=== PATIENT | male | born 1955 | race Caucasian/White ===

== ENCOUNTER 2022-04-02 01:04 | Inpatient (IN) | payer OTHER, MEDICAID ==
[~2022-04-02] VITALS: Ht 167.6 cm; Wt 90.7 kg
[2022-04-02 03:47] LABS: BASOPHILS % 0.3 % (0.0-2.0); EOSINOPHILS % 0.7 % (0.0-5.0); HEMATOCRIT. 46.8 % (42.0-52.0); HEMOGLOBIN. 16.2 g/dL (14.0-18.0); LYMPHOCYTES % 15.2 % (20.0-50.0); MEAN CORPUSCULAR HEMOGLOBIN 33.7 pg (28.0-32.0); MONOCYTES % 6.8 % (2.0-8.0); PLATELET 230 x1000/uL (130-400); RED BLOOD CELL COUNT 4.82 mill/uL (4.7-6.1); RED CELL DISTRIBUTION WIDTH 13.4 % (11.6-14.6)
[2022-04-02 03:54] LABS: CHLORIDE 107 mEq/L (98-107)
[2022-04-02 04:09] LABS: ETHANOL BLOOD < 10 mg/dL
[2022-04-02 05:50] LABS: CLARITY URINE CLOUDY (CLEAR); COLOR URINE YELLOW (YELLOW); KETONES URINE TRACE (NEGATIVE); LEUKOCYTE ESTERASE URINE 3+ (NEGATIVE); NITRITE URINE NEGATIVE (NEGATIVE); OCCULT BLOOD URINE TRACE (NEGATIVE); PROTEIN URINE NEGATIVE (NEGATIVE); SPECIFIC GRAVITY URINE 1.015 (1.005-1.030); UROBILINOGEN URINE 0.2 E.U./dL (0.2-1.0)
[2022-04-02 06:05] LABS: *AMPHETAMINES SCREEN URINE NEGATIVE (NEGATIVE); *BARBITURATES SCREEN URINE NEGATIVE (NEGATIVE); *BENZODIAZEPINES SCREEN URINE NEGATIVE (NEGATIVE); *COCAINE SCREEN URINE NEGATIVE (NEGATIVE); CANNABINOID URINE SCREEN NEGATIVE (NEGATIVE); METHADONE URINE SCREEN NEGATIVE (NEGATIVE); OPIATES URINE SCREEN NEGATIVE (NEGATIVE); PHENCYCLIDINE URINE SCREEN NEGATIVE (NEGATIVE)
[2022-04-02] MEDS ORDERED: ASPI-867 MT (10:32)
[2022-04-02 10:52] VITALS: BP 127/82
[2022-04-02 11:26] VITALS: BP 127/82
[2022-04-02] MEDS ORDERED: ZOLPIDEM TARTRATE 5MG TABLET PO PRN (12:15)
[2022-04-02] MEDS ORDERED: ACETAMINOPHEN 325MG TABLET PO PRN (12:15)
[2022-04-02] MEDS ORDERED: CLONIDINE 0.1MG TABLET PO PRN (12:15)
[2022-04-02] MEDS ORDERED: IPRATROPIUM/ALBUTEROL 0.5-3(2.5)MG/3ML NEB HHN PRN (12:15)
[2022-04-02] MEDS: ENOXAPARIN 40MG/0.4ML SYR SUBCUT SCH (12:52)
[2022-04-02] MEDS: CEFTRIAXONE 1,000 MG in DEXTROSE 5% WATER 50 ML IV SCH (15:12)
[2022-04-02 16:01] VITALS: BP 95/57
[2022-04-02 16:39] LABS: CREATINE KINASE MB FRACTION 1.5 ng/mL (0.5-3.6)
[2022-04-02 20:00] VITALS: BP 104/66
[2022-04-03] VITALS: BP 131/79
[2022-04-03 03:06] LABS: CREATINE KINASE MB FRACTION 1.1 ng/mL (0.5-3.6)
[2022-04-03 04:00] VITALS: BP 106/64
[2022-04-03 08:00] VITALS: BP 118/65
[2022-04-03] MEDS ORDERED: DEXAMETHASONE 4MG/ML 1ML VIAL IV NR (10:15)
[2022-04-03 12:00] VITALS: BP 132/83
[2022-04-03 12:39] LABS: BASOPHILS % 0.5 % (0.0-2.0); EOSINOPHILS % 0.6 % (0.0-5.0); HEMOGLOBIN. 14.2 g/dL (14.0-18.0); MEAN CORPUSCULAR HEMOGLOBIN 33.5 pg (28.0-32.0); MEAN CORPUSCULAR VOLUME 97.1 fL (80.0-94.0); MEAN PLATELET VOLUME 8.5 fl (7.4-10.4); NEUTROPHILS % 76.9 % (40.0-76.0); PLATELET 205 x1000/uL (130-400); RED BLOOD CELL COUNT 4.22 mill/uL (4.7-6.1); RED CELL DISTRIBUTION WIDTH 12.7 % (11.6-14.6)
[2022-04-03] MEDS: ENOXAPARIN 40MG/0.4ML SYR SUBCUT SCH (12:58)
[2022-04-03 13:22] LABS: CHLORIDE 105 mEq/L (98-107)
[2022-04-03] MEDS: CEFTRIAXONE 1,000 MG in DEXTROSE 5% WATER 50 ML IV SCH (15:43)
[2022-04-03 16:00] VITALS: BP 108/67
[2022-04-03] MEDS: DEXAMETHASONE 4MG/ML 1ML VIAL IV SCH (18:47)
[2022-04-03 20:00] VITALS: BP 96/61
[2022-04-04] VITALS (7 sets, daily range): BP systolic 99–150; BP diastolic 54–91
[2022-04-04] MEDS: DEXAMETHASONE 4MG/ML 1ML VIAL IV SCH ×5 (00:43→23:47)
[2022-04-04] MEDS: ENOXAPARIN 40MG/0.4ML SYR SUBCUT SCH (12:24)
[2022-04-04] MEDS ORDERED: DOCU250C69 PO (12:43)
[2022-04-04 16:48] LABS: INR 1.1; PROTHROMBIN TIME 11.4 sec (9.6-11.0)
[2022-04-04] MEDS: CEFTRIAXONE 1,000 MG in DEXTROSE 5% WATER 50 ML IV SCH (16:53)
[2022-04-04] MEDS: DOCUSATE SODIUM 250MG CAPSULE PO SCH (20:16)
[2022-04-05] VITALS (45 sets, daily range): BP systolic 76–192; BP diastolic 39–109
[2022-04-05] MEDS: DEXAMETHASONE 4MG/ML 1ML VIAL IV SCH ×3 (05:50→17:15)
[2022-04-05] MEDS ORDERED: ROCURONIUM BROMIDE 10MG/ML VIAL 5ML IV ONE ×2 (06:52→08:57)
[2022-04-05] MEDS ORDERED: FENTANYL CITRATE/PF 50MCG/ML 2ML VIAL ONE ×2 (06:52→08:20)
[2022-04-05] MEDS ORDERED: PROPOFOL 200MG/20ML VIAL IV ONE (06:52)
[2022-04-05] MEDS ORDERED: PHENYLEPHRINE HCL 10 MG/ML 1ML (IV VIAL) IV ONE (06:52)
[2022-04-05] MEDS ORDERED: LIDOCAINE HCL 1%/EPI 1:200,000 30 ML VIAL ONE (06:59)
[2022-04-05] MEDS ORDERED: BACITRACIN 15GM TUBE TOP ONE (06:59)
[2022-04-05] MEDS ORDERED: GENTAMICIN SULF 40MG/ML 2ML VIAL ONE (06:59)
[2022-04-05] MEDS ORDERED: THROMBIN (BOVINE) 5000 UNITS/VIAL TOP ONE (06:59)
[2022-04-05] MEDS ORDERED: MORPHINE SULFATE 4 MG/ML CPJ (NOT FOR IM USE) IV PRN (08:00)
[2022-04-05] MEDS ORDERED: GLYCOPYRROLATE 0.2 MG/ML 2ML VIAL ONE ×2 (08:19→09:17)
[2022-04-05] MEDS ORDERED: NEOSTIGMINE METHYLSULFATE 1MG/ML 10 ML VIAL ONE (09:16)
[2022-04-05] MEDS ORDERED: CEFAZOLIN SODIUM 1000MG/VIAL ONE (09:40)
[2022-04-05] MEDS ORDERED: NICARDIPINE 100 MG in SODIUM CHLORIDE 0.9% 60 ML IV PRN (10:00)
[2022-04-05] MEDS: DOCUSATE SODIUM 250MG CAPSULE PO SCH (10:23)
[2022-04-05] MEDS: DEXT 5%/LACTATED RINGERS 1,000 ML IV SCH ×2 (11:10→17:15)
[2022-04-05] MEDS: CEFAZOLIN 1000MG PREMIX 50 ML IV SCH ×2 (13:13→22:13)
[2022-04-05] MEDS ORDERED: CEFAZOLIN SODIUM 1000MG/VIAL IV SCH (14:00)
[2022-04-06] VITALS (73 sets, daily range): BP systolic 36–169; BP diastolic 23–151
[2022-04-06] MEDS: DEXAMETHASONE 4MG/ML 1ML VIAL IV SCH ×4 (00:45→18:07)
[2022-04-06] MEDS: DEXT 5%/LACTATED RINGERS 1,000 ML IV SCH ×2 (04:00→14:20)
[2022-04-06] MEDS: CEFAZOLIN 1000MG PREMIX 50 ML IV SCH ×2 (05:21→14:20)
[2022-04-06] MEDS: DOCUSATE SODIUM 250MG CAPSULE PO SCH (08:05)
[2022-04-07] VITALS (21 sets, daily range): BP systolic 83–176; BP diastolic 51–101
[2022-04-07] MEDS: DOCUSATE SODIUM 250MG CAPSULE PO SCH (08:14)
[2022-04-07] MEDS ORDERED: NALOXONE HCL 0.4MG/ML VIAL IV PRN (10:15)
[2022-04-07] MEDS: DEXT 5%/LACTATED RINGERS 1,000 ML IV SCH ×3 (12:40→20:14)
[2022-04-07 18:04] LABS: BASOPHILS % 0.1 % (0.0-2.0); EOSINOPHILS % 0.1 % (0.0-5.0); HEMATOCRIT. 40.2 % (42.0-52.0); HEMOGLOBIN. 13.8 g/dL (14.0-18.0); LYMPHOCYTES % 12.1 % (20.0-50.0); MEAN CORPUSCULAR HEMOGLOBIN 33.3 pg (28.0-32.0); MEAN CORPUSCULAR VOLUME 96.9 fL (80.0-94.0); MEAN PLATELET VOLUME 8.4 fl (7.4-10.4); NEUTROPHILS % 75.7 % (40.0-76.0); PLATELET 220 x1000/uL (130-400); RED BLOOD CELL COUNT 4.15 mill/uL (4.7-6.1); RED CELL DISTRIBUTION WIDTH 12.7 % (11.6-14.6)
[2022-04-07 18:25] LABS: CHLORIDE 104 mEq/L (98-107)
[2022-04-08] MEDS: DEXT 5%/LACTATED RINGERS 1,000 ML IV SCH (04:59)
[2022-04-08] MEDS: DOCUSATE SODIUM 250MG CAPSULE PO SCH (07:49)
[2022-04-08 08:00] VITALS: BP 130/82
[2022-04-08 12:00] VITALS: BP 109/70
[2022-04-08 14:18] VITALS: BP 109/70
[2022-04-09] MEDS ORDERED: LEVO-65 MT (09:46)
== END 2022-04-08 15:15 | disposition home health service (06) | DRG 471 ==
LOC: ER 01:52 → 8WST 04:56 → MICUNO 04-05 09:39 → 6EST 04-07 10:06
PROVIDERS: ADMIT Internal Medicine; ATTEND Internal Medicine
PROC: 0RG20A0 Fusion of 2 or more Cervical Vertebral Joints with Interbody Fusion Device, Anterior Approach, Anterior Column, Open Approach (ICD-10-PCS; principal; 2022-04-05)
PROC: 00NW0ZZ Release Cervical Spinal Cord, Open Approach (ICD-10-PCS; 2022-04-05)
PROC: 0RB30ZZ Excision of Cervical Vertebral Disc, Open Approach (ICD-10-PCS; 2022-04-05)
PROC: 4A11X4G Monitoring of Peripheral Nervous Electrical Activity, Intraoperative, External Approach (ICD-10-PCS; 2022-04-05)
DX: M48.02 Spinal stenosis, cervical region (principal); G82.50 Quadriplegia, unspecified; M50.022 Cervical disc disorder at C5-C6 level with myelopathy; N39.0 Urinary tract infection, site not specified; G95.20 Unspecified cord compression; M47.12 Other spondylosis with myelopathy, cervical region; I10 Essential (primary) hypertension; E11.9 Type 2 diabetes mellitus without complications; M50.90 Cervical disc disorder, unspecified, unspecified cervical region; M47.892 Other spondylosis, cervical region; J44.9 Chronic obstructive pulmonary disease, unspecified; M25.78 Osteophyte, vertebrae; M50.221 Other cervical disc displacement at C4-C5 level; M50.222 Other cervical disc displacement at C5-C6 level; Z86.73 Personal history of transient ischemic attack (TIA), and cerebral infarction without residual deficits; Z20.822 Contact with and (suspected) exposure to COVID-19
CPT/HCPCS: 36415; 70551; 71045; 72040; 72141; 76000; 80053; 80061; 80305; 80320; 81003; 82140; 82550; 82553; 82962; 83036; 83880; 84153; 84443; 84484; 85025; 86850; 86900; 87426; 88304; 88311; 92610; 93005; 97161; 97164; 97530; 99285; C1893; J0690; J0696; J1100; J1580; J1650; J2270; J2370; J2704; J2710; J3010; J3490; J7060; J7121; G0103; G0480

== ENCOUNTER 2022-05-31 18:12 | Inpatient (IN) | payer OTHER, MEDICAID ==
[~2022-05-31] VITALS: Ht 165.1 cm; Wt 81.6 kg
[~2022-05-31 18:12] MED LIST: ASPI-867 MT; DOCU250C69 PO; LEVO-65 MT
[2022-05-31] MEDS ORDERED: ACETAMINOPHEN 500MG TABLET PO ONE (18:30)
[2022-05-31 20:02] LABS: HEMATOCRIT. 37.4 % (42.0-52.0); HEMOGLOBIN. 12.5 g/dL (14.0-18.0); MEAN CORPUSCULAR HEMOGLOBIN 31.6 pg (28.0-32.0); MEAN CORPUSCULAR VOLUME 94.6 fL (80.0-94.0); MEAN PLATELET VOLUME 7.4 fl (7.4-10.4); PLATELET 326 x1000/uL (130-400); RED BLOOD CELL COUNT 3.95 mill/uL (4.7-6.1); RED CELL DISTRIBUTION WIDTH 14.4 % (11.6-14.6)
[2022-05-31 20:09] LABS: INR 1.1; PROTHROMBIN TIME 12.2 sec (9.6-11.0)
[2022-05-31 20:55] LABS: CHLORIDE 100 mEq/L (98-107)
[2022-05-31] MEDS ORDERED: AZITHROMYCIN 500 MG in DEXT 5% WATER 250 ML IV SCH (21:00)
[2022-05-31] MEDS ORDERED: AZITHROMYCIN 500MG/250ML 250 ML IV SCH (21:00)
[2022-05-31] MEDS ORDERED: CEFTRIAXONE 1 G PREMIX 50 ML IV NR (21:00)
[2022-05-31 21:09] LABS: PLATELET ESTIMATE NORMAL
[2022-05-31] MEDS ORDERED: SODIUM CHLORIDE 0.9% 1,000 ML IV NR (21:45)
[2022-05-31] MEDS ORDERED: ACETAMINOPHEN 500MG TABLET PO NR (22:00)
[2022-06-01] MEDS ORDERED: ONDANSETRON HCL 4MG/2ML INJ IV PRN (10:15)
[2022-06-01] MEDS ORDERED: DIPHENHYDRAMINE 50MG/ML VIAL IV PRN (10:15)
[2022-06-01] MEDS ORDERED: NA PHOS,M-B/NA PHOS,DI-BA ENEMA 118ML PR PRN (10:15)
[2022-06-01] MEDS ORDERED: MAGNESIUM/ALUMINUM HYDROXIDE/SIMETHICONE 30ML UDC PO PRN (10:15)
[2022-06-01] MEDS ORDERED: ACETAMINOPHEN 650MG SUPP PR PRN (10:15)
[2022-06-01] MEDS ORDERED: HYDROCODONE/ACETAMINOPHEN 5/325MG TABLET PO PRN (10:15)
[2022-06-01] MEDS ORDERED: ACETAMINOPHEN 325MG TABLET PO PRN (10:15)
[2022-06-01] MEDS ORDERED: IPRATROPIUM/ALBUTEROL 0.5-3(2.5)MG/3ML NEB NEB PRN (10:15)
[2022-06-01] MEDS ORDERED: DOCUSATE SODIUM 100MG CAPSULE PO PRN (10:15)
[2022-06-01] MEDS ORDERED: LORAZEPAM 0.5MG TABLET PO PRN (10:15)
[2022-06-01 10:52] LABS: CHLORIDE 102 mEq/L (98-107)
[2022-06-01] MEDS ORDERED: VANCOMYCIN 1500MG in DEXTROSE 5% WATER 250ML IV NR (11:30)
[2022-06-01] MEDS: IPRATROPIUM/ALBUTEROL 0.5-3(2.5)MG/3ML NEB HHN SCH (12:00)
[2022-06-01 12:08] LABS: CLARITY URINE CLEAR (CLEAR); COLOR URINE YELLOW (YELLOW); KETONES URINE NEGATIVE (NEGATIVE); LEUKOCYTE ESTERASE URINE NEGATIVE (NEGATIVE); NITRITE URINE NEGATIVE (NEGATIVE); OCCULT BLOOD URINE NEGATIVE (NEGATIVE); PH URINE 6.5 (4.5-8.0); PROTEIN URINE NEGATIVE (NEGATIVE); SPECIFIC GRAVITY URINE 1.014 (1.005-1.030)
[2022-06-01] MEDS ORDERED: METHYLPREDNISOLONE SOD SUCC 40 MG/ML VIAL IV SCH (13:00)
[2022-06-01 13:04] LABS: BG BASE EXCESS 2.2 mmol/L (-2.0-2.0); BG CARBOXYHEMOGLOBIN 0.3 % (0.5-1.5); BG DEOXYHEMOGLOBIN 3.1 % (0.0-5.0); BG HCO3 ACT 26.7 mmol/L (22.0-26.0); BG METHEMOGLOBIN 0.3 % (0.0-1.5); BG OXYGEN SATURATION 96.9 % (92.0-98.5); BG OXYHEMOGLOBIN 96.3 % (94.0-97.0); BG PCO2 41.3 mmHg (35.0-45.0); BG PH 7.429 (7.350-7.450); BG PO2 91.2 mmHg (75.0-100.0); BG SAMPLE SITE RIGHT RADIAL; BG TOTAL HEMOGLOBIN 13.3 g/dL (12.0-18.0); BG VENT MODE NASAL CANNULA
[2022-06-01] MEDS ORDERED: ACETYLCYSTEINE 100MG/ML 10% VIAL 4ML INH SCH (14:00)
[2022-06-01] MEDS: PIPERACILLIN/TAZOBACTAM 3.375 G in DEXTROSE 5% WATER 50 ML IV SCH ×2 (15:04→22:30)
[2022-06-01] MEDS: GUAIFENESIN 200MG/10ML SUGAR FREE UDC PO PRN ×2 (15:04→15:08)
[2022-06-01] MEDS ORDERED: NALOXONE HCL 0.4MG/ML VIAL IV PRN (15:30)
[2022-06-01 16:31] LABS: BASOPHILS % 0.5 % (0.0-2.0); EOSINOPHILS % 0.7 % (0.0-5.0); HEMATOCRIT. 39.2 % (42.0-52.0); HEMOGLOBIN. 13.2 g/dL (14.0-18.0); LYMPHOCYTES % 8.1 % (20.0-50.0); MEAN CORPUSCULAR HEMOGLOBIN 32.1 pg (28.0-32.0); MEAN CORPUSCULAR VOLUME 95.2 fL (80.0-94.0); MEAN PLATELET VOLUME 7.6 fl (7.4-10.4); MONOCYTES % 3.2 % (2.0-8.0); NEUTROPHILS % 87.5 % (40.0-76.0); PLATELET 290 x1000/uL (130-400); RED BLOOD CELL COUNT 4.12 mill/uL (4.7-6.1); RED CELL DISTRIBUTION WIDTH 14.7 % (11.6-14.6)
[2022-06-01] MEDS: ENOXAPARIN 40MG/0.4ML SYR SUBCUT SCH (19:41)
[2022-06-01] MEDS: METHYLPREDNISOLONE SOD SUCC 40 MG/ML VIAL IV SCH (21:00)
[2022-06-01] MEDS: FAMOTIDINE 20MG TABLET PO SCH (21:00)
[2022-06-02] MEDS ORDERED: VANCOMYCIN 750MG PREMIX 150 ML IV SCH
[2022-06-02] MEDS: IPRATROPIUM/ALBUTEROL 0.5-3(2.5)MG/3ML NEB HHN SCH ×2 (02:20→08:05)
[2022-06-02] MEDS: METHYLPREDNISOLONE SOD SUCC 40 MG/ML VIAL IV SCH ×3 (05:00→22:22)
[2022-06-02 05:44] LABS: CHLORIDE 104 mEq/L (98-107); HEMATOCRIT. 36.8 % (42.0-52.0); HEMOGLOBIN. 12.6 g/dL (14.0-18.0); MEAN CORPUSCULAR HEMOGLOBIN 32.2 pg (28.0-32.0); MEAN CORPUSCULAR VOLUME 93.6 fL (80.0-94.0); MEAN PLATELET VOLUME 7.5 fl (7.4-10.4); PLATELET 317 x1000/uL (130-400); RED BLOOD CELL COUNT 3.93 mill/uL (4.7-6.1); RED CELL DISTRIBUTION WIDTH 14.3 % (11.6-14.6)
[2022-06-02] MEDS: PIPERACILLIN/TAZOBACTAM 3.375 G in DEXTROSE 5% WATER 50 ML IV SCH ×3 (06:00→22:21)
[2022-06-02 09:27] LABS: BG BASE EXCESS 1.6 mmol/L (-2.0-2.0); BG DEOXYHEMOGLOBIN 7.9 % (0.0-5.0); BG FRACTION INSPIRED OXYGEN 32; BG HCO3 ACT 26.2 mmol/L (22.0-26.0); BG METHEMOGLOBIN 0.3 % (0.0-1.5); BG OXYHEMOGLOBIN 90.8 % (94.0-97.0); BG PCO2 41.1 mmHg (35.0-45.0); BG PH 7.422 (7.350-7.450); BG PO2 62.7 mmHg (75.0-100.0); BG SAMPLE SITE LEFT RADIAL; BG TOTAL HEMOGLOBIN 14.1 g/dL (12.0-18.0); BG VENT MODE NASAL CANNULA
[2022-06-02] MEDS: GUAIFENESIN 200MG/10ML SUGAR FREE UDC PO PRN (11:36)
[2022-06-02] MEDS: VANCOMYCIN 750MG PREMIX 150 ML IV SCH ×2 (11:36→23:58)
[2022-06-02 12:49] LABS: PLATELET ESTIMATE NORMAL
[2022-06-02] MEDS ORDERED: ALBUTEROL (0.083%) 2.5MG/3ML NEB HHN PRN (15:15)
[2022-06-02] MEDS ORDERED: IPRATROPIUM BROMIDE (0.02%) 0.5MG/2.5ML NEB HHN PRN (15:15)
[2022-06-02 15:20] VITALS: BP 172/98
[2022-06-02] MEDS: CLONIDINE 0.1MG TABLET PO PRN (16:19)
[2022-06-02] MEDS: ENOXAPARIN 40MG/0.4ML SYR SUBCUT SCH (17:58)
[2022-06-02 20:00] VITALS: BP_SYST 115; BP_SYST 149; BP_DIAS 73; BP_DIAS 77
[2022-06-02] MEDS: ACETYLCYSTEINE 200MG/ML 20% VIAL 4ML INH SCH (21:39)
[2022-06-02] MEDS: IPRATROPIUM BROMIDE (0.02%) 0.5MG/2.5ML NEB HHN SCH (21:40)
[2022-06-02] MEDS: ALBUTEROL (0.083%) 2.5MG/3ML NEB HHN SCH (21:41)
[2022-06-02] MEDS: FAMOTIDINE 20MG TABLET PO SCH (22:22)
[2022-06-02 23:30] VITALS: BP 115/73
[2022-06-03 04:00] VITALS: BP 124/83
[2022-06-03] MEDS: METHYLPREDNISOLONE SOD SUCC 40 MG/ML VIAL IV SCH ×3 (05:13→20:59)
[2022-06-03] MEDS: PIPERACILLIN/TAZOBACTAM 3.375 G in DEXTROSE 5% WATER 50 ML IV SCH ×3 (06:26→20:38)
[2022-06-03 07:33] LABS: HEMATOCRIT. 37.8 % (42.0-52.0); HEMOGLOBIN. 12.8 g/dL (14.0-18.0); MEAN CORPUSCULAR VOLUME 94.6 fL (80.0-94.0); MEAN PLATELET VOLUME 7.7 fl (7.4-10.4); PLATELET 339 x1000/uL (130-400); RED BLOOD CELL COUNT 3.99 mill/uL (4.7-6.1); RED CELL DISTRIBUTION WIDTH 14.1 % (11.6-14.6)
[2022-06-03 08:00] VITALS: BP 142/89
[2022-06-03 08:13] LABS: CHLORIDE 102 mEq/L (98-107)
[2022-06-03] MEDS ORDERED: APIX5TAB MT (08:17)
[2022-06-03] MEDS ORDERED: AMIO100T4 MT (08:17)
[2022-06-03] MEDS: VANCOMYCIN 750MG PREMIX 150 ML IV SCH (10:01)
[2022-06-03] MEDS: ACETYLCYSTEINE 200MG/ML 20% VIAL 4ML INH SCH (10:10)
[2022-06-03] MEDS: IPRATROPIUM BROMIDE (0.02%) 0.5MG/2.5ML NEB HHN SCH ×2 (10:10→19:55)
[2022-06-03] MEDS: ALBUTEROL (0.083%) 2.5MG/3ML NEB HHN SCH ×2 (10:10→19:55)
[2022-06-03 12:00] VITALS: BP 145/79
[2022-06-03 13:56] LABS: PLATELET ESTIMATE NORMAL
[2022-06-03 16:00] VITALS: BP 163/91
[2022-06-03] MEDS ORDERED: IOHEXOL-350 100 ML BOTTLE ONE (16:06)
[2022-06-03] MEDS: CLONIDINE 0.1MG TABLET PO PRN (17:06)
[2022-06-03] MEDS: ENOXAPARIN 40MG/0.4ML SYR SUBCUT SCH (17:06)
[2022-06-03 20:00] VITALS: BP 95/65
[2022-06-03] MEDS: VANCOMYCIN 1G PREMIX 200 ML IV SCH (20:38)
[2022-06-03] MEDS: FAMOTIDINE 20MG TABLET PO SCH (20:59)
[2022-06-04] VITALS (7 sets, daily range): BP systolic 128–190; BP diastolic 76–107
[2022-06-04] MEDS: ACETYLCYSTEINE 200MG/ML 20% VIAL 4ML INH SCH ×3 (02:19→13:31)
[2022-06-04] MEDS: IPRATROPIUM BROMIDE (0.02%) 0.5MG/2.5ML NEB HHN SCH ×3 (02:20→13:30)
[2022-06-04] MEDS: ALBUTEROL (0.083%) 2.5MG/3ML NEB HHN SCH ×3 (02:20→13:29)
[2022-06-04] MEDS: METHYLPREDNISOLONE SOD SUCC 40 MG/ML VIAL IV SCH ×3 (05:47→20:46)
[2022-06-04] MEDS: PIPERACILLIN/TAZOBACTAM 3.375 G in DEXTROSE 5% WATER 50 ML IV SCH ×3 (05:48→20:45)
[2022-06-04] MEDS: CLONIDINE 0.1MG TABLET PO PRN (07:58)
[2022-06-04] MEDS: VANCOMYCIN 1G PREMIX 200 ML IV SCH ×2 (11:42→20:45)
[2022-06-04 18:53] LABS: BG BASE EXCESS 3.5 mmol/L (-2.0-2.0); BG CARBOXYHEMOGLOBIN 0.7 % (0.5-1.5); BG DEOXYHEMOGLOBIN 6.3 % (0.0-5.0); BG FRACTION INSPIRED OXYGEN 21; BG METHEMOGLOBIN 0.2 % (0.0-1.5); BG OXYGEN SATURATION 93.6 % (92.0-98.5); BG OXYHEMOGLOBIN 92.8 % (94.0-97.0); BG PCO2 42.1 mmHg (35.0-45.0); BG PH 7.441 (7.350-7.450); BG PO2 65.8 mmHg (75.0-100.0); BG SAMPLE SITE RIGHT RADIAL; BG VENT MODE ROOM AIR
[2022-06-04] MEDS: ENOXAPARIN 40MG/0.4ML SYR SUBCUT SCH (20:01)
[2022-06-04] MEDS: FAMOTIDINE 20MG TABLET PO SCH (20:45)
[2022-06-04 21:40] LABS: HEMATOCRIT. 39.7 % (42.0-52.0); HEMOGLOBIN. 13.1 g/dL (14.0-18.0); MEAN CORPUSCULAR HEMOGLOBIN 30.9 pg (28.0-32.0); MEAN CORPUSCULAR VOLUME 93.8 fL (80.0-94.0); MEAN PLATELET VOLUME 7.2 fl (7.4-10.4); PLATELET 346 x1000/uL (130-400); RED BLOOD CELL COUNT 4.23 mill/uL (4.7-6.1); RED CELL DISTRIBUTION WIDTH 14.3 % (11.6-14.6)
[2022-06-04 21:57] LABS: CHLORIDE 100 mEq/L (98-107)
[2022-06-04 22:14] LABS: PLATELET ESTIMATE NORMAL
[2022-06-05] VITALS: BP 151/90
[2022-06-05] MEDS: ALBUTEROL (0.083%) 2.5MG/3ML NEB HHN SCH ×4 (01:55→20:09)
[2022-06-05] MEDS: IPRATROPIUM BROMIDE (0.02%) 0.5MG/2.5ML NEB HHN SCH ×4 (01:55→20:09)
[2022-06-05] MEDS: ACETYLCYSTEINE 200MG/ML 20% VIAL 4ML INH SCH ×3 (01:55→16:45)
[2022-06-05 04:00] VITALS: BP 161/97
[2022-06-05] MEDS: METHYLPREDNISOLONE SOD SUCC 40 MG/ML VIAL IV SCH (05:29)
[2022-06-05] MEDS: PIPERACILLIN/TAZOBACTAM 3.375 G in DEXTROSE 5% WATER 50 ML IV SCH ×2 (05:30→14:28)
[2022-06-05] MEDS ORDERED: METHYLPREDNISOLONE SOD SUCC 40 MG/ML VIAL IV SCH (06:15)
[2022-06-05 07:18] LABS: CHLORIDE 100 mEq/L (98-107)
[2022-06-05 08:00] VITALS: BP 186/99
[2022-06-05] MEDS: CLONIDINE 0.1MG TABLET PO PRN (09:30)
[2022-06-05] MEDS: VANCOMYCIN 1G PREMIX 200 ML IV SCH (09:30)
[2022-06-05] MEDS ORDERED: P20 MT (10:57)
[2022-06-05] MEDS ORDERED: LEVO-65 MT (10:57)
[2022-06-05] MEDS ORDERED: ALBU18HF2 IH (10:57)
[2022-06-05 16:00] VITALS: BP_SYST 125
[2022-06-05] MEDS: ENOXAPARIN 40MG/0.4ML SYR SUBCUT SCH (19:24)
[2022-06-05 20:00] VITALS: BP 98/62
== END 2022-06-05 22:00 | disposition home or self-care (01) | DRG 871 ==
LOC: ER 18:20 → MICUSO 21:38 → EDBEDREQSVC 06-01 14:27 → 7EST 06-02 15:04
PROVIDERS: ADMIT Internal Medicine; ATTEND Internal Medicine
PROC: 5A09357 Assistance with Respiratory Ventilation, Less than 24 Consecutive Hours, Continuous Positive Airway Pressure (ICD-10-PCS; principal; 2022-06-01)
DX: A41.9 Sepsis, unspecified organism (principal); J18.9 Pneumonia, unspecified organism; J96.00 Acute respiratory failure, unspecified whether with hypoxia or hypercapnia; E87.1 Hypo-osmolality and hyponatremia; E87.20 Acidosis, unspecified; D64.9 Anemia, unspecified; I10 Essential (primary) hypertension; Z20.822 Contact with and (suspected) exposure to COVID-19; E11.9 Type 2 diabetes mellitus without complications; Z86.73 Personal history of transient ischemic attack (TIA), and cerebral infarction without residual deficits; Z79.899 Other long term (current) drug therapy; E11.65 Type 2 diabetes mellitus with hyperglycemia
CPT/HCPCS: 36415; 36600; 71045; 71275; 80048; 80053; 80202; 81003; 82375; 82805; 83605; 84145; 84443; 84484; 85025; 85379; 87426; 87804; 93005; 93306; 94640; 94660; 97110; 97162; 99291; J0456; J1650; J2543; J2920; J3370; J7060; J7608; Q9967